=== PATIENT | female | born 1960 | race Caucasian/White ===

== ENCOUNTER → 2016-09-23 | Outpatient (CLI) | payer BC ==
[~2016-09-23] VITALS: Ht 157.5 cm; Wt 101.2 kg
[~2016-09-23] MED LIST: ADULT LOW DOSE81 M1 PO; ALLOPURINOL; ALLOPURINOL300 MG PO; AMARYL4 MG PO; CIPRO500 MG PO; FLAGYL500 MG PO; HYDROCHLOROTHIA25 MG PO; LO-DOSE ASPIRIN81 M1 PO; LOPRESSOR25 MG PO; METFORMIN HCL500 MG PO; MOBIC15 MG PO; OMEPRAZOLE40 M1 PO; PRAVACHOL80 MG PO; PRINIVIL20 MG PO; TESSALON PERLE100 MG PO; ZESTRIL30 MG PO; ZOFRAN ODT4 MG PO
[2016-09-23 08:01] LABS: ANION GAP 12 MEQ/L (2-14); CHLORIDE 106 MEQ/L (99-109); POTASSIUM 3.8 MEQ/L (3.7-5.4); SAMPLE HEMOLYSIS CHECK 0; SAMPLE ICTERIC CHECK 0; SAMPLE LIPEMIA CHECK 0; SODIUM 142 MEQ/L (136-147)
[2016-09-23 08:07] LABS: GFR ESTIMATE (CALCULATED) 55 mL/min/; GLUCOSE 150 mg/dL (70-99); UREA NITROGEN (BUN) 23 mg/dL (9-23)
[2016-09-23 09:21] LABS: POINT-OF-CARE METER ID UU13113819
== END | disposition home or self-care (01) ==
LOC: AMB 07-22 07:30
PROVIDERS: Internal Medicine
PROC: 0DJ08ZZ Inspection of Upper Intestinal Tract, Via Natural or Artificial Opening Endoscopic (ICD-10-PCS; principal; 2016-09-23)
DX: K22.2 Esophageal obstruction (principal); K20.9 Esophagitis, unspecified; I10 Essential (primary) hypertension; E78.5 Hyperlipidemia, unspecified; K21.9 Gastro-esophageal reflux disease without esophagitis; G47.33 Obstructive sleep apnea (adult) (pediatric); G25.0 Essential tremor; E11.9 Type 2 diabetes mellitus without complications
CPT/HCPCS: 80048; 82948; 93005; J2250